=== PATIENT | male | born 1940 | race Caucasian/White ===

== ENCOUNTER 2019-08-03 05:44 | Day surgery (SDC) | payer OTHER, MEDICARE ==
--- NOTE | 2019-08-02 14:14 | HP ---
CHIEF COMPLAINT: Major Depressive Disorder PCP: Dimple Rivera Cardiology: Dimple Todd Primary Psychiatrist: Dr. Lala HISTORY OF PRESENT ILLNESS: 78 year-old male with a PMH significant for HTN, HLD, major depressive disorder , obesity, GERD, BPH, and osteoarthritis. First ECT 10-15 years ago, last ECT 8- 9 years ago. He presents today for ECT. 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 Smoking: never Alcohol: no Drugs: no Family history Mother 100 sick sinus syndrome Father 70 complications from MVC injuries Allergies No Known Drug Allergies Allergy (Verified 08/02/19 13:24) HOME MEDICATIONS: Home Medications Medication Instructions Recorded Acetaminophen/Diphenhydramine 2 each PO DAILY 08/02/19 [Tylenol Pm Ex-Strength Caplet] Lisinopril/Hydrochlorothiazide 1 tab PO BID 08/02/19 [Lisinopril-Hctz 20-25 mg Tab] REVIEW OF SYSTEMS CONSTITUTIONAL: Absent: fever, chills, diaphoresis, generalized weakness, malaise, loss of appetite, weight change HEENT: Absent: rhinorrhea, nasal congestion, throat pain, throat swelling, difficulty swallowing, mouth swelling, ear pain, eye pain, visual changes CARDIOVASCULAR: Absent: chest pain, syncope, palpitations, irregular heart rate, lightheadedness , peripheral edema RESPIRATORY: Absent: cough, shortness of breath, dyspnea with exertion, orthopnea, wheezing, stridor, hemoptysis GASTROINTESTINAL: Absent: abdominal pain, abdominal distension, nausea, vomiting, diarrhea, constipation, melena, hematochezia GENITOURINARY: Absent: dysuria, frequency, urgency, hesitancy, hematuria, flank pain, genital pain MUSCULOSKELETAL: Absent: myalgia, arthralgia, joint swelling, back pain, neck pain SKIN: Absent: rash, itching, pallor HEMATOLOGIC/IMMUNOLOGIC: Absent: easy bleeding, easy bruising, lymphadenopathy, frequent infections ENDOCRINE: Absent: unexplained weight gain, unexplained weight loss, heat intolerance, cold intolerance NEUROLOGIC: Absent: headache, focal weakness or paresthesias, dizziness, unsteady gait, seizure, mental status changes, bladder or bowel incontinence PHYSICAL EXAMINATION Vital Signs Temperature 97.6 F 08/03/19 06:44 Pulse Rate 74 08/03/19 06:44 Respiratory Rate 18 08/03/19 06:44 Blood Pressure 120/90 08/03/19 06:44 O2 Sat by Pulse Oximetry (%) 98 08/03/19 06:44 GENERAL: Awake, alert, and fully oriented, in no acute distress. HEAD: Normal with no signs of trauma. EYES: Pupils equal, round and reactive to light, sclera anicteric, conjunctiva clear. LUNGS: Breath sounds equal, clear to auscultation bilaterally. No wheezes, and no crackles. No accessory muscle use. HEART: Regular rate and rhythm, normal S1 and S2 ABDOMEN: Soft, nontender, not distended MUSCULOSKELETAL: Normal range of motion at all joints. No bony deformities or tenderness. No CVA tenderness. UPPER EXTREMITIES: 2+ pulses, warm, well-perfused. No cyanosis. No clubbing. No peripheral edema. LOWER EXTREMITIES: 2+ pulses, warm, well-perfused. No calf tenderness. No peripheral edema. NEUROLOGICAL: Cranial nerves II-XII intact. Normal speech. ASSESSMENT/PLAN: 78 year-old male with a PMH significant for HTN, HLD, major depressive disorder , obesity, GERD, BPH, and osteoarthritis. He presents today for ECT. Cardiac --no cardiac history --Revised Cardiac Risk Index for Pre-Operative Risk: 0 points, 0.4% risk of major cardiac event Pulmonary --no pulmonary history Neurological --no neurological or neurosurgical history; no history of trauma Anesthesia --no reported problems with anesthesia ECT is a low risk procedure. The relative benefits of the planned procedure outweigh the relative risks for this patient at this time. Visit type - Emergency Visit Emergency Visit: No - New Patient This patient is new to me today: Yes Date on this admission: 08/03/19 - Critical Care Critical Care patient: No
[2019-08-03 06:52] VITALS: TEMP 97.6; BMI 33.4
[2019-08-03] MEDS ORDERED: KETAMINE HCL 500 MG/10 ML VIAL ONE (07:58)
[2019-08-03] MEDS ORDERED: LACTATED RINGERS SOLUTION 1,000 ML IV SCH (08:30)
[2019-08-03 10:23] VITALS: BP 129/76; PULSE 78
== END 2019-08-03 10:20 | disposition home or self-care (01) ==
LOC: FECT 05:44
PROVIDERS: ATTEND Psychiatry & Neurology Psychiatry
PROC: GZB4ZZZ Other Electroconvulsive Therapy (ICD-10-PCS; principal; 2019-08-03 07:00)
DX: F32.9 Major depressive disorder, single episode, unspecified (principal)
CPT/HCPCS: 90870; 94760

== ENCOUNTER 2019-08-04 06:12 | Day surgery (SDC) | payer OTHER, MEDICARE ==
[2019-08-04 07:30] VITALS: TEMP 97.6; BMI 33.4
[2019-08-04] MEDS ORDERED: KETAMINE HCL 500 MG/10 ML VIAL ONE (08:29)
[2019-08-04] MEDS ORDERED: LACTATED RINGERS SOLUTION 1,000 ML IV SCH (09:45)
[2019-08-04] MEDS ORDERED: ONDANSETRON 4 MG/2 ML VIAL IVPUSH PRN (09:45)
[2019-08-04 10:30] VITALS: BP 122/86; PULSE 72
== END 2019-08-04 10:00 | disposition home or self-care (01) ==
LOC: FECT 06:12
PROVIDERS: ATTEND Psychiatry & Neurology Psychiatry
PROC: GZB4ZZZ Other Electroconvulsive Therapy (ICD-10-PCS; principal; 2019-08-04 08:15)
DX: F33.2 Major depressive disorder, recurrent severe without psychotic features (principal); I10 Essential (primary) hypertension; E78.5 Hyperlipidemia, unspecified; K21.9 Gastro-esophageal reflux disease without esophagitis; N40.0 Benign prostatic hyperplasia without lower urinary tract symptoms; M19.90 Unspecified osteoarthritis, unspecified site; E66.9 Obesity, unspecified; Z68.33 Body mass index [BMI] 33.0-33.9, adult
CPT/HCPCS: 90870; 94760

== ENCOUNTER 2019-08-08 05:57 | Day surgery (SDC) | payer OTHER, MEDICARE ==
[2019-08-04 12:09] VITALS: BMI 33.4
[2019-08-08] MEDS ORDERED: ONDANSETRON 4 MG/2 ML VIAL IVPUSH PRN (07:01)
[2019-08-08] MEDS ORDERED: KETAMINE HCL 500 MG/10 ML VIAL ONE (07:14)
[2019-08-08] MEDS ORDERED: LACTATED RINGERS SOLUTION 1,000 ML IV SCH (07:15)
[2019-08-08 08:42] VITALS: TEMP 97.6
[2019-08-08 09:26] VITALS: BP 132/76; PULSE 74
== END 2019-08-08 09:31 | disposition home or self-care (01) ==
LOC: FECT 05:57
PROVIDERS: ATTEND Psychiatry & Neurology Psychiatry
PROC: GZB4ZZZ Other Electroconvulsive Therapy (ICD-10-PCS; principal; 2019-08-08 08:30)
DX: F32.9 Major depressive disorder, single episode, unspecified (principal)
CPT/HCPCS: 90870; 94760

== ENCOUNTER 2019-08-09 05:46 | Day surgery (SDC) | payer OTHER, MEDICARE ==
[2019-08-03 14:20] VITALS: BMI 33.4
[2019-08-09] MEDS ORDERED: LACTATED RINGERS SOLUTION 1,000 ML IV SCH (07:45)
[2019-08-09] MEDS ORDERED: KETAMINE HCL 500 MG/10 ML VIAL ONE (07:58)
[2019-08-09 09:04] VITALS: TEMP 98.1
[2019-08-09 09:18] VITALS: BP 133/88; PULSE 77
== END 2019-08-09 09:15 | disposition home or self-care (01) ==
LOC: FECT 05:46
PROVIDERS: ATTEND Psychiatry & Neurology Psychiatry
PROC: GZB4ZZZ Other Electroconvulsive Therapy (ICD-10-PCS; principal; 2019-08-09 07:45)
DX: F32.9 Major depressive disorder, single episode, unspecified (principal)
CPT/HCPCS: 90870; 94760

== ENCOUNTER 2019-08-11 05:43 | Day surgery (SDC) | payer OTHER, MEDICARE ==
[2019-08-03 14:26] VITALS: BMI 33.4
[2019-08-11 06:42] VITALS: TEMP 97.9
[2019-08-11] MEDS ORDERED: KETAMINE HCL 500 MG/10 ML VIAL ONE (07:08)
[2019-08-11 09:03] VITALS: BP 136/98; PULSE 72
== END 2019-08-11 08:45 | disposition home or self-care (01) ==
LOC: FECT 05:43
PROVIDERS: ATTEND Psychiatry & Neurology Psychiatry
PROC: GZB4ZZZ Other Electroconvulsive Therapy (ICD-10-PCS; principal; 2019-08-11 07:30)
DX: F33.2 Major depressive disorder, recurrent severe without psychotic features (principal)
CPT/HCPCS: 90870; 94760

== ENCOUNTER 2019-08-14 05:47 | Day surgery (SDC) | payer OTHER, MEDICARE ==
[2019-08-03 14:54] VITALS: BMI 33.4
[2019-08-14] MEDS ORDERED: KETAMINE HCL 500 MG/10 ML VIAL ONE (07:07)
[2019-08-14] MEDS ORDERED: PROMETHAZINE HCL 25 MG/1 ML VIAL IVPUSH PRN (08:03)
[2019-08-14] MEDS ORDERED: ONDANSETRON 4 MG/2 ML VIAL IVPUSH PRN (08:03)
[2019-08-14] MEDS ORDERED: ACETAMINOPHEN 500 MG TABLET (FP) PO PRN (08:03)
[2019-08-14 08:08] VITALS: TEMP 98
[2019-08-14] MEDS ORDERED: LACTATED RINGERS SOLUTION 1,000 ML IV SCH (08:15)
[2019-08-14 09:26] VITALS: BP 144/90; PULSE 89
== END 2019-08-14 09:30 | disposition home or self-care (01) ==
LOC: FECT 05:47
PROVIDERS: ATTEND Psychiatry & Neurology Psychiatry
PROC: GZB4ZZZ Other Electroconvulsive Therapy (ICD-10-PCS; principal; 2019-08-14 07:45)
DX: F33.2 Major depressive disorder, recurrent severe without psychotic features (principal)
CPT/HCPCS: 90870; 94760

== ENCOUNTER 2019-08-16 05:38 | Day surgery (SDC) | payer OTHER, MEDICARE ==
[2019-08-09 16:28] VITALS: BMI 33.4
[2019-08-16] MEDS ORDERED: KETAMINE HCL 500 MG/10 ML VIAL ONE (07:08)
[2019-08-16 08:23] VITALS: TEMP 98
[2019-08-16 08:37] VITALS: BP 131/87; PULSE 77
== END 2019-08-16 08:40 | disposition home or self-care (01) ==
LOC: FECT 05:38
PROVIDERS: ATTEND Psychiatry & Neurology Psychiatry
PROC: GZB4ZZZ Other Electroconvulsive Therapy (ICD-10-PCS; principal; 2019-08-16 07:30)
DX: F32.9 Major depressive disorder, single episode, unspecified (principal)
CPT/HCPCS: 90870; 94760

== ENCOUNTER 2019-08-18 05:41 | Day surgery (SDC) | payer OTHER, MEDICARE ==
[2019-08-02 13:42] VITALS: BMI 33.4
[2019-08-18] MEDS ORDERED: KETAMINE HCL 500 MG/10 ML VIAL ONE (06:58)
[2019-08-18 08:00] VITALS: TEMP 97.8
[2019-08-18 08:54] VITALS: BP 138/94; PULSE 72
== END 2019-08-18 08:56 | disposition home or self-care (01) ==
LOC: FECT 05:41
PROVIDERS: ATTEND Psychiatry & Neurology Psychiatry
PROC: GZB4ZZZ Other Electroconvulsive Therapy (ICD-10-PCS; principal; 2019-08-18 07:30)
DX: F32.9 Major depressive disorder, single episode, unspecified (principal)
CPT/HCPCS: 90870; 94760

== ENCOUNTER 2019-08-21 05:44 | Day surgery (SDC) | payer OTHER, MEDICARE ==
[2019-08-15 15:19] VITALS: BMI 33.4
[2019-08-21] MEDS ORDERED: KETAMINE HCL 500 MG/10 ML VIAL ONE (07:05)
[2019-08-21 08:04] VITALS: TEMP 98.2
[2019-08-21 08:44] VITALS: BP 120/81; PULSE 71
== END 2019-08-21 08:49 | disposition home or self-care (01) ==
LOC: FECT 05:44
PROVIDERS: ATTEND Psychiatry & Neurology Psychiatry
PROC: GZB4ZZZ Other Electroconvulsive Therapy (ICD-10-PCS; principal; 2019-08-21 07:45)
DX: F33.2 Major depressive disorder, recurrent severe without psychotic features (principal)
CPT/HCPCS: 90870; 94760

== ENCOUNTER 2019-08-25 05:43 | Day surgery (SDC) | payer OTHER, MEDICARE ==
[2019-08-15 16:30] VITALS: BMI 33.4
[2019-08-25 06:34] VITALS: TEMP 97.9
[2019-08-25] MEDS ORDERED: KETAMINE HCL 500 MG/10 ML VIAL ONE (06:53)
[2019-08-25] MEDS ORDERED: ACETAMINOPHEN 500 MG TABLET (FP) PO PRN (07:59)
[2019-08-25 08:00] VITALS: PULSE 67
[2019-08-25 08:44] VITALS: BP 125/84
== END 2019-08-25 08:30 | disposition home or self-care (01) ==
LOC: FECT 05:43
PROVIDERS: ATTEND Psychiatry & Neurology Psychiatry
PROC: GZB4ZZZ Other Electroconvulsive Therapy (ICD-10-PCS; principal; 2019-08-25 07:00)
DX: F32.9 Major depressive disorder, single episode, unspecified (principal)
CPT/HCPCS: 90870; 94760

== ENCOUNTER 2019-08-30 05:44 | Day surgery (SDC) | payer OTHER, MEDICARE ==
[2019-08-28 12:04] VITALS: BMI 33.4
[2019-08-30] MEDS ORDERED: KETAMINE HCL 500 MG/10 ML VIAL ONE (06:58)
[2019-08-30 08:02] VITALS: TEMP 97.7
[2019-08-30 08:50] VITALS: BP 138/83; PULSE 71
== END 2019-08-30 08:52 | disposition home or self-care (01) ==
LOC: FECT 05:44
PROVIDERS: ATTEND Psychiatry & Neurology Psychiatry
PROC: GZB4ZZZ Other Electroconvulsive Therapy (ICD-10-PCS; principal; 2019-08-30 07:30)
DX: F32.9 Major depressive disorder, single episode, unspecified (principal)
CPT/HCPCS: 90870; 94760